=== PATIENT | male | born 1940 | race Asian ===

== ENCOUNTER → 2023-08-31 06:20 | Day surgery (SDC) | payer OTHER, SELFPAY ==
[2023-08-31 08:33] LABS: Glucose - Point of Care 206 mg/dl (70-99)
== END ==
LOC: GI 06:20
PROVIDERS: ATTENDING PHYSICIAN Specialist
DX: K31.89 Other diseases of stomach and duodenum (principal); K22.70 Barrett's esophagus without dysplasia; K31.A11 Gastric intestinal metaplasia without dysplasia, involving the antrum; K31.A12 Gastric intestinal metaplasia without dysplasia, involving the body (corpus); K31.A21 Gastric intestinal metaplasia with low grade dysplasia; K31.A15 Gastric intestinal metaplasia without dysplasia, involving multiple sites; K29.40 Chronic atrophic gastritis without bleeding; K29.50 Unspecified chronic gastritis without bleeding
CPT/HCPCS: 43239; 88305; 82962; 88341; 88342

== ENCOUNTER → 2023-10-01 07:19 | Outpatient (REF) | payer OTHER, SELFPAY | LOC: RAD 07:19 | PROVIDERS: ATTENDING PHYSICIAN Specialist; FAMILY PHYSICIAN Internal Medicine | DX: K31.A29 Gastric intestinal metaplasia with dysplasia, unspecified (principal) | CPT/HCPCS: 74177; Q9967 ==

== ENCOUNTER → 2023-10-23 13:59 | Outpatient (REF) | payer OTHER, SELFPAY | LOC: RAD 13:59 | PROVIDERS: ATTENDING PHYSICIAN Urology; FAMILY PHYSICIAN Internal Medicine | DX: N30.00 Acute cystitis without hematuria (principal); N12 Tubulo-interstitial nephritis, not specified as acute or chronic | CPT/HCPCS: 74178; Q9967 ==

== ENCOUNTER 2023-11-07 06:17 | Day surgery (SDC) | payer OTHER, SELFPAY ==
[2023-11-07 07:20] VITALS: BP 120/61
[2023-11-07 07:21] LABS: Glucose - Point of Care 174 mg/dl (70-99)
[2023-11-07 09:42] VITALS: BP 114/63
[2023-11-07 09:45] VITALS: BP 108/56
[2023-11-07 09:51] LABS: Glucose - Point of Care 150 mg/dl (70-99)
[2023-11-07 10:00] VITALS: BP 115/58
[2023-11-07 10:15] VITALS: BP 128/85
== END 2023-11-07 10:40 | disposition home or self-care (01) ==
LOC: SDS 06:17
PROVIDERS: ATTENDING PHYSICIAN Internal Medicine Gastroenterology
DX: D13.1 Benign neoplasm of stomach (principal); K31.A0 Gastric intestinal metaplasia, unspecified; K31.89 Other diseases of stomach and duodenum; K86.2 Cyst of pancreas
CPT/HCPCS: 43270; 43237; 43254; 88305; 82962

== ENCOUNTER 2024-03-13 19:36 | Inpatient (IN) | payer OTHER, SELFPAY ==
[2024-03-13 13:47] VITALS: BP 147/64
--- NOTE | 2024-03-13 14:55 | ED.GENMED ---
History of Present Illness
<Lise Ugalde PA-C - Last Filed: 03/13/24 19:43>
General
Chief Complaint: Abdominal Pain
Source: patient
Exam Limitations: none
Time Seen by Provider: 03/13/24 14:55
Nursing documentation reviewed up to this point in time: agreed with
History of Present Illness
History of Present Illness:
This is a 83 y/o male with a past medical history of coronary artery disease, small bowel obstruction, Santiago's esophagus, GI bleed presenting emergency department today with concerns of sudden onset of diffuse abdominal pain. Daughter present in
room translating for patient. Daughter lives with patient reports that he started to complain of diffuse abdominal pain when he woke up this morning. Patient compares it to when he has had a small bowel obstruction in the past. Daughter reports
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 Daughter reports that he has issues with recurrent issues with abdominal pain. Patient denies chest pain, back pain, flank pain, shortness of breath, hematuria, dysuria, melena,
diarrhea, constipation.
Past History
<Lise Ugalde PA-C - Last Filed: 03/13/24 19:43>
Past History
ED Past Medical History: CAD, HTN, NIDDM and SC
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
Social History
Tobacco: Non-smoker
Alcohol: None
Drug: None
Personal:
Living: with family
Review of Systems
<DILLON Bo Last Filed: 03/13/24 19:43>
Review of Systems
All Other Systems: ROS reviewed and negative except as documented in HPI and ROS
Phy Exam
<DILLON Bo Last Filed: 03/13/24 19:43>
Physical Exam
Physical Exam:
General: Patient is well appearing and in no acute distress; non-toxic
Skin: Warm and dry, no rashes or lesions
Head: Normocephalic, atraumatic
Eyes: Sclera non-icteric. EOMs intact. PERRLA.
Cardiac: Regular rate and rhythm, no murmurs
Peripheral Vascular: No lower extremity swelling or edema
Pulm: Normal respiratory effort, no wheezes, rales, or rhonchi
Abdomen: Abdomen distended, diffusely tender to palpation. Normoactive bowel sounds.
Neuro: CN II-XII intact, no focal neurologic deficits.
Psychiatric: Appropriate mood and affect.
Course
Trevorlt;Lise Ugalde PA-C - Last Filed: 03/13/24 19:43>
Orders/Labs/Results
Orders:
Orders
03/13/24 15:10
Electrocardiogram (*1) Urgent
Reason for Study: Abdominal Pain
03/13/24 15:11
EKG- Treatment ONCE
03/13/24 15:16
Morphine Sulfate 2 mg IV NOW STA
Ondansetron Injectable [Zofran] 4 mg IV NOW STA
03/13/24 15:20
CT Abd/pelvis W Iv Cont Urgent
Comment:
Reason For Exam: diffuse abdominal pain
03/13/24 15:45
Complete Blood Count/With Diff Urgent
Comprehensive Metabolic Panel Urgent
Lipase Urgent
03/13/24 16:20
0.9% Sodium Chloride 500 ml [Nss] 500 ml IV BOLUS
03/13/24 18:18
0.9% Sodium Chloride 500 ml [Nss] 500 ml IV BOLUS
03/13/24 18:21
NG Tube [GI tube insertion- Treatment] ONCE
03/13/24 18:35
Admit/Transfer Patient As Directed
Co-Sign Provider:
Level of Care: Inpatient admission
Assign to:: Medical/Surgical
Physician / Group: chan
Diagnosis: small bowel obstruction
Reason for Hospitalization: small bowel obstruction
Expected length of stay greater than two midnights?: Yes
ELOS- Estimated Length of Stay in days: 2
I certify the patient meets the requirements for IP care: Yes
03/13/24 18:36
Code Status As Directed
Resuscitation Status: Full Code
PRN Pain Medication Management As Directed
May give lesser potent ordered pain med per pt: Yes
preference::
Protocol:: Medication orders for pain may be administered in a
manner that supports deferring to patient preference
when the pt is:
- Requesting an ordered lesser potent pain medication.
Least to most potent pain medications are defined
as: acetaminophen < NSAID < tramadol < opioids
(morphine, oxycodone, hydromorphone).
- Requesting a lesser dose of the same medication IF
ORDERED.
- Requesting a less intrusive route of administration
if both routes are prescribed by the provider (PO <
IV).
03/13/24 19:34
Morphine Sulfate 2 mg IV Q4HPRN PRN
03/14/24 Breakfast
NPO
Allow oral meds: No
Allow clear liquids: No
NPO with Ice Chips: No
Abnormal Lab Results
03/13/24
15:45
RBC 3.83 L 10^6/uL
(4.70-6.10)
Hgb 12.2 L g/dL
(13.0-18.0)
Hct 35.7 L %
(39.0-52.0)
MCH 31.9 H pg
(27.0-31.0)
Abs Immat Gran (auto) 0.1 H 10^3/uL
(0-0.05)
Absolute Neuts (auto) 8.5 H 10^3/uL
(1.4-6.5)
Absolute Lymphs (auto) 1.1 L 10^3/uL
(1.2-3.4)
Immature Gran % 0.8 H %
(0-0.5)
Neutrophils % 82.8 H %
(42.2-75.2)
Lymphocytes % 10.3 L %
(20.5-51.1)
BUN 27 H mg/dl
(9-20)
Glucose 281 H mg/dl
(70-99)
03/13/24 15:45
03/13/24 15:45
Vital Signs
Initial and Last Documented VS:
Initial Vital Signs
Temp Pulse Resp BP Pulse Ox
97.4 F 57 26 147/64 100
03/13/24 13:47 03/13/24 13:47 03/13/24 13:47 03/13/24 13:47 03/13/24 13:47
Last Documented Vital Signs
Temp Pulse Resp BP Pulse Ox
98.8 F 58 26 136/64 97
03/13/24 19:32 03/13/24 19:32 03/13/24 13:47 03/13/24 19:32 03/13/24 19:32
<Nino Kirkland, - Last Filed: 03/13/24 19:52>
Orders/Labs/Results
Orders:
Orders
03/13/24 15:10
Electrocardiogram (*1) Urgent
Reason for Study: Abdominal Pain
03/13/24 15:11
EKG- Treatment ONCE
03/13/24 15:16
Morphine Sulfate 2 mg IV NOW STA
Ondansetron Injectable [Zofran] 4 mg IV NOW STA
03/13/24 15:20
CT Abd/pelvis W Iv Cont Urgent
Comment:
Reason For Exam: diffuse abdominal pain
03/13/24 15:45
Complete Blood Count/With Diff Urgent
Comprehensive Metabolic Panel Urgent
Lipase Urgent
03/13/24 16:20
0.9% Sodium Chloride 500 ml [Nss] 500 ml IV BOLUS
03/13/24 18:18
0.9% Sodium Chloride 500 ml [Nss] 500 ml IV BOLUS
03/13/24 18:21
NG Tube [GI tube insertion- Treatment] ONCE
03/13/24 18:35
Admit/Transfer Patient As Directed
Co-Sign Provider:
Level of Care: Inpatient admission
Assign to:: Medical/Surgical
Physician / Group: chan
Diagnosis: small bowel obstruction
Reason for Hospitalization: small bowel obstruction
Expected length of stay greater than two midnights?: Yes
ELOS- Estimated Length of Stay in days: 2
I certify the patient meets the requirements for IP care: Yes
03/13/24 18:36
Code Status As Directed
Resuscitation Status: Full Code
PRN Pain Medication Management As Directed
May give lesser potent ordered pain med per pt: Yes
preference::
Protocol:: Medication orders for pain may be administered in a
manner that supports deferring to patient preference
when the pt is:
- Requesting an ordered lesser potent pain medication.
Least to most potent pain medications are defined
as: acetaminophen < NSAID < tramadol < opioids
(morphine, oxycodone, hydromorphone).
- Requesting a lesser dose of the same medication IF
ORDERED.
- Requesting a less intrusive route of administration
if both routes are prescribed by the provider (PO <
IV).
03/13/24 19:34
Morphine Sulfate 2 mg IV Q4HPRN PRN
03/14/24 Breakfast
NPO
Allow oral meds: No
Allow clear liquids: No
NPO with Ice Chips: No
Abnormal Lab Results
03/13/24
15:45
RBC 3.83 L 10^6/uL
(4.70-6.10)
Hgb 12.2 L g/dL
(13.0-18.0)
Hct 35.7 L %
(39.0-52.0)
MCH 31.9 H pg
(27.0-31.0)
Abs Immat Gran (auto) 0.1 H 10^3/uL
(0-0.05)
Absolute Neuts (auto) 8.5 H 10^3/uL
(1.4-6.5)
Absolute Lymphs (auto) 1.1 L 10^3/uL
(1.2-3.4)
Immature Gran % 0.8 H %
(0-0.5)
Neutrophils % 82.8 H %
(42.2-75.2)
Lymphocytes % 10.3 L %
(20.5-51.1)
BUN 27 H mg/dl
(9-20)
Glucose 281 H mg/dl
(70-99)
03/13/24 15:45
03/13/24 15:45
Vital Signs
Initial and Last Documented VS:
Initial Vital Signs
Temp Pulse Resp BP Pulse Ox
97.4 F 57 26 147/64 100
03/13/24 13:47 03/13/24 13:47 03/13/24 13:47 03/13/24 13:47 03/13/24 13:47
Last Documented Vital Signs
Temp Pulse Resp BP Pulse Ox
98.8 F 58 26 136/64 97
03/13/24 19:32 03/13/24 19:32 03/13/24 13:47 03/13/24 19:32 03/13/24 19:32
<Lise Ugalde PA-C - Last Filed: 03/13/24 19:43>
MDM/Problems Addressed
Differential Diagnosis Includes:
ddx include small bowel obstruction, pancreatitis, duodenitis, gastritis, mesenteric ischemia, cholecystitis
MDM/Problems Addressed:
Abdominal pain:
83 y/o male hx of SBO (2015 managed non-surgically), CAD, HTN, diabetes, GERD, santiago's esophagus, coming in with diffuse abdominal pain starting acutely this morning. No active vomiting, diarrhea, constipation. Afebrile, no leukocytosis. On exam,
his abdomen is diffusely tender. He was found to have a small bowel obstruction with thickening of loops of small bowel as well as a small amount of fluid within the mesentery. No blood thinners, last meal 1000. General surgery made aware.
Considering stomach contents visualized on CT and per gen surg recommendations, will place NG tube. Patient made NPO. Will refer for admission.
Chronic conditions affecting care:
CAD, HTN, HLP, diabetes, hx of SBO, GERD, Santiago's esophagus
Acute Exacerbation and/or Progression of Chronic Illness:
CAD, HTN, HLP, diabetes, hx of SBO, GERD, Santiago's esophagus
<Lise Ugalde PA-C - Last Filed: 03/13/24 19:43>
*Pulse Oximetry
Patient hypoxic: no
*Critical Care Note
Total Time (30-74mins, 75-104mins- exclusive of procedures): Not Applicable
Data Reviewed
Review of Other/Old Records Reveals: Records (Reviewed ER physician documentation from 08/02/2023) and Operative Reports (Reviewed endoscopy report from 11/07/2023, patient was found to have a normal esophagus with a single gastric polyp which was
resected and retrieved)
Source: patient and records
Prescriptions/Medications Considered But Not Given:
n/a
Further Testing Considered But Not Given:
n/a
<Lise Ugalde PA-C - Last Filed: 03/13/24 19:43>
Patient Management
Escalation/DeEscalation of care consider admission/obs:
Patient referred for admission. Case reviewed with my attending.
ED Attending Note
<Lise Ugalde PA-C - Last Filed: 03/13/24 19:43>
-
Portions of this chart may have been created with voice recognition software.� Occasional wrong word or��sound alike� substitutions may have occurred due to the inherent limitations of voice recognition software.
<Nino Kirkland DO - Last Filed: 03/13/24 19:52>
ED Attending Note
Patient seen and examined by attending physician: Yes
I performed the substantive portion of visit, reviewed & personally made and approve the management plan that is documented in note by myself or ALLEGRA.: Yes
I performed a history and physical exam of patient and discussed management with resident, I reviewed resident's note and agree with documented findings and plan of care.: Yes
ED Attending Note:
I evaluated the patient at bedside at 3:15 PM. The patient appears somewhat uncomfortable. He has moderate tenderness on examination. Will give narcotic analgesia, give IV fluids, and also check CT imaging for further evaluation. He did vomit
earlier today in the waiting room. He has had a surgery involving the abdomen after a soccer injury in [place] as a child.
Discharge Plan
Departure
Patient Disposition: Admit
Date of Disposition: 03/13/24
Time of Disposition: 18:25
Admit to: Med/Surg
Presentation/result/management discussed w/ accepting MD/DO: Hospitalist
Patient with high blood pressure during this ER visit?: Yes
Condition: Fair
Discharge Problem:
SBO (small bowel obstruction)
Interventions
Interventions:
*General Assessment Last Done: 03/13/24 13:46
*Neglect/Abuse Screening Last Done: 03/13/24 13:46
*ED COVID-19 Vaccine History Last Done: 03/13/24 13:46
GI-Tkawwm-Lkglkyurbx Assessment Last Done: 03/13/24 19:44
[2024-03-13] MEDS: ZOFRAN 4 MG IV (15:42)
[2024-03-13] MEDS: MORPHINE SULFATE 2 MG IV ×2 (15:42→20:09)
[2024-03-13 15:47] VITALS: BP 124/57
[2024-03-13 15:48] VITALS: BMI 19.9
[2024-03-13 15:57] LABS: % Basophils 0.2 % (0-2); % Eosinophils 0.4 % (0-6); % Immature Granulocytes 0.8 % (0-0.5); % Lymphocytes 10.3 % (20.5-51.1); % Monocytes 5.5 % (1.7-9.3); % Neutrophils 82.8 % (42.2-75.2); Absolute Immature Granulocytes 0.1 10^3/uL (0-0.05); Absolute Lymphocytes 1.1 10^3/uL (1.2-3.4); Absolute Monocytes 0.6 10^3/uL (0.1-0.6); Absolute Neutrophils 8.5 10^3/uL (1.4-6.5); Hematocrit 35.7 % (39.0-52.0); Hemoglobin 12.2 g/dL (13.0-18.0); Mean Corp Hgb Conc. 34.2 g/dL (33.0-37.0); Mean Corpuscular Hgb 31.9 pg (27.0-31.0); Mean Corpuscular Volume 93.2 fL (80.0-94.0); Mean Platelet Volume 9.9 fL (7.4-10.4); Nucleated Red Blood Cells % 0 % (-); Platelet Count 194 10^3/uL (130-400); Red Blood Cell Count 3.83 10^6/uL (4.70-6.10); White Blood Cell Count 10.3 10^3/uL (4.8-10.8)
[2024-03-13 16:10] LABS: ALT (SGPT) 16 U/L (0-50); AST (SGOT) 22 U/L (17-59); Albumin 4.5 g/dl (3.5-5.0); Alkaline Phosphatase 122 U/L (38-126); Blood Urea Nitrogen 27 mg/dl (9-20); Calcium 9.8 mg/dl (8.4-10.2); Carbon Dioxide 24 mmol/L (22-30); Chloride 101 mmol/L (98-107); Estimated Creatinine Clearance 46 ml/min; Glucose 281 mg/dl (70-99); Potassium 4.2 mmol/L (3.5-5.1); Sodium 136 mmol/L (135-145); Total Bilirubin 0.7 mg/dl (0.2-1.3); Total Protein 7.1 g/dl (6.3-8.2); eGFR > 60.00
[2024-03-13 16:31] LABS: Lipase 39 U/L (23-300)
[2024-03-13] MEDS: NSS 500 IV ×2 (17:23→20:21)
--- NOTE | 2024-03-13 18:40 | HPS.HSE ---
Family Physician
-
Family Physician: Reagan Peter
Chief Complaint
-
abdominal pain
History of Present Illness
83-year-old French speaking male past medical history of coronary artery disease status post stent, hypertension, small bowel obstruction, Don's esophagus, gastric ulcer, diabetes, splenectomy presenting with sudden onset of diffuse abdominal
pain since waking up this morning. Pain feels similar to prior small bowel obstruction in the past. He had vomiting and chills. He had a normal bowel movement this morning. No chest pain or shortness of breath.
Medical History
Past Medical History
Past Medical History: Reports Other ( coronary artery disease status post stent, hypertension, small bowel obstruction, Don's esophagus, gastric ulcer, diabetes, splenectomy )
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
Social History
Tobacco: Former Smoker
Alcohol: None
Drug: None
Family History
Family History: Not pertinent
Allergies / Home Medications
Allergies reflects when Allergies were last updated in [employer].
Home Medications with original date entered in [employer]
Allergy/Medication List:
Allergies
Allergy/AdvReac Type Severity Reaction Status Date / Time
No Known Allergies Allergy Verified 11/07/23 07:28
Home Medications
ascorbic acid (vitamin C) 1,000 mg tablet (Vitamin C) 1 tab PO HS 02/16/14
calcium carbonate (Calcium 600) 600 mg PO BID 02/16/14
losartan 25 mg tablet 25 mg PO HS 02/16/14
metoprolol tartrate 25 mg tablet 25 mg PO BID 02/16/14
mgfpqemz-alb-xuumc acid 0.4 mg-lycopene 300 mcg-lutein 250 mcg tablet (Centrum Silver) 1 tab PO DAILY 02/16/14
pioglitazone 30 mg tablet 45 mg PO HS 02/16/14
sitagliptin phos 50 mg-metformin ER 1,000 mg tablet,extend rel 24h mp (Janumet XR) 1 tab PO BID 02/16/14
Fish Oil 1 tab PO DAILY 03/30/15
dapagliflozin propanediol 10 mg tablet (Farxiga) 10 mg PO 11/07/23
magnesium 200 mg tablet 400 mg PO DAILY 11/07/23
uuguswalzxht-dpcquqzj-wrqaew tablet 1 tab PO DAILY 11/07/23
pantoprazole 40 mg tablet,delayed release 40 mg PO DAILY 11/07/23
Review of Systems
-
History Source: Patient
A 12 point ROS was completed and negative except as noted: Yes
Constitutional: Reports No Symptoms
EENT: Reports No Symptoms
Respiratory: Reports No Symptoms
Cardiac: Reports No Symptoms
Abdomen/GI: Reports See HPI
: Reports No Symptoms
Musculoskeletal: Reports No Symptoms
Skin: Reports No Symptoms
Neurological: Reports No Symptoms
Endocrine: Reports No Symptoms
Hematologic/Lymphatic: Reports No Symptoms
Psych: Reports No Symptoms
Physical Exam
Vital Signs
Vital Signs
Temp Pulse Resp BP Pulse Ox
97.4 F 67 26 124/57 94
03/13/24 13:47 03/13/24 15:47 03/13/24 13:47 03/13/24 15:47 03/13/24 15:47
Physical Exam
General: Well Developed, Well Nourished and No Apparent Distress
HEENT: NormoCephalic, Moist mucous membranes and Atraumatic
Respiratory: Clear
Cardiac: S1/S2 and Regular Rhythm; No Murmur or Rub
GI: Soft, Non Distended, Normal Bowel Sounds and Tender (diffusely ); No Organomegaly
Rectal: Deferred by Provider
Musculoskeletal: No Clubbing, No Cyanosis and No Edema
Skin: No Rash
Neuro: Nonfocal/grossly intact
Laboratory Results
-
03/13/24 15:45
03/13/24 15:45
Laboratory Results
Total Bilirubin 0.7 mg/dl (0.2-1.3) 03/13/24 15:45
AST 22 U/L (17-59) 03/13/24 15:45
ALT 16 U/L (0-50) 03/13/24 15:45
Alkaline Phosphatase 122 U/L (38-126) 03/13/24 15:45
Lipase 39 U/L (23-300) 03/13/24 15:45
Data Reviewed
-
Lab Data: Labs Reviewed by me
Old Records: Reviewed
Impression/Plan
-
IMPRESSION:
PLAN:
# Small bowel obstruction/enteritis
# History of small bowel obstruction
-N.p.o. including oral medications
-IV fluids
-Morphine, Zofran
-NG tube to be placed
-General Surgery consulted
CAD status post stent
-hold metoprolol until he can take p.o.
Essential hypertension
-Hold losartan until can take p.o.
-As needed labetalol if needed
Don's esophagus
History of gastric ulcer
-Continue Protonix IV
Type 2 diabetes
-Hold Janumet, pioglitazone, dapagliflozin
-Insulin sliding scale
History of trauma status post splenectomy
Former smoker
Full code
DVT prophylaxis�heparin
N.p.o.
[2024-03-13 19:32] VITALS: BP 136/64
[2024-03-13] MEDS: LIDOCAINE URO-JET 2% 1 SYRINGE TOPICAL (20:30)
[2024-03-13 21:43] VITALS: BMI 20.7
[2024-03-13 21:44] VITALS: BP 138/67
[2024-03-13] MEDS: NSS 1000 IV (22:02)
[2024-03-13] MEDS: HEPARIN 5000 UNITS SC (22:03)
[2024-03-13 23:42] LABS: Glucose - Point of Care 134 mg/dl (70-99)
[2024-03-13] MEDS: NOVOLOG FLEXPEN-LOW RESISTANCE SC (23:44)
[2024-03-14] MEDS: MORPHINE SULFATE 2 MG IV ×3 (00:42→10:57)
--- NOTE | 2024-03-14 05:39 | PTCARENOTE ---
Pt admitted to the floor at 2145 and pivoted from stretcher to bed x1. Daughter up to floor w/ patient and translating.
Kamila Madsen present in R nare, hooked up to low int suction. Pt c/o 8/10 pain throughout abd. PRN Morphine given (see MAR). NG tube irrigated Q4H w/ 30 mls of tap water. Pt denies nausea. 60mls instilled into NG tube and 40mls of yellow bile out. Pt
given urinal and instructed to call for BSC. Call cano within reach and plan of care ongoing.
[2024-03-14 05:49] LABS: Glucose - Point of Care 151 mg/dl (70-99)
[2024-03-14] MEDS: NOVOLOG FLEXPEN-LOW RESISTANCE 1 UNITS SC (06:23)
[2024-03-14 07:34] VITALS: BP 114/56
--- NOTE | 2024-03-14 07:37 | CON.GS ---
Addendum entered and electronically signed by Kai Corona MD 03/14/24 11:34:
Patient seen and examined.
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 He does have multiple prior bowel obstructions all of
which have been able to be managed medically. His most recent episode was years ago. He presents with 24 hours of abdominal pain after having a meal consisting of oatmeal. Associated nausea and vomiting. He reports passing some flatus this
morning. No bowel movement. Currently he denies any nausea, pain has improved but not resolved.
Gen: NAD
Abd: soft, tender to palpation diffusely, mild/moderate distension, non-peritoneal (no rebound or guarding)
Labs and CT scan imaging were reviewed.
Patient is an 83 yo M p/w adhesive SBO
Patient and family well versed on the natural history and pathophysiology of SBO's. No clinical or radiographic evidence of bowel ischemia (no pneumatosis or free air). Some signs of slow clinical improvement with passage of flatus. Normal WBC.
Hemodynamically stable. Recommend trial of medical management with bowel rest and IV fluids. All questions answered.
-- NPO, IVF, NGT decompression
-- Minimize narcotics, correct lytes
-- X-ray abd to confirm NGT placement and assess distension
Original Note:
Consultation
-
Performing Provider: Sky Marshall MD ; Kai Croona MD
Reason for Consultation: Abdominal pain
Medical History
-
Chief Complaint: Abdominal Pain
History of Present Illness:
Patient is a Latvian only speaker, History obtained from chart review in addition to patient interview( via phone american sign language interpreter). General surgery consulted for concerns of SBO.
83-year-old male with known history of prior small bowel obstructions, Don's esophagus, gastric ulcer, coronary artery disease status post stent placement, hypertension, diabetes, splenectomy presented initially with sudden onset of diffuse
abdominal pain after he had oatmeal yesterday. Patient reports pain feels similar to prior small bowel obstruction episodes. He also had episode of some nausea and chills, denies vomiting. His last bowel movement was on 03/13/2024( before the
onset of abdominal pain). Denies any chest pain or shortness of breath.
CT abdomen and pelvis with IV contrast was performed and finding compatible with small bowel obstruction
Past Medical History
Past Medical History: CAD (Status post stent placement), HTN and Other (Small bowel obstruction, Don's esophagus, gastric ulcer, diabetes)
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
Social History
Tobacco: Former Smoker
Alcohol: None
Drug: None
Family History
Family History: Reviewed & Not Pertinent
Allergies / Home Medications
Allergy/AdvReac Type Severity Reaction Status Date / Time
No Known Allergies Allergy Verified 11/07/23 07:28
�Medication �Instructions �Recorded �Confirmed �Type
ascorbic acid (vitamin C) 1,000 mg 1 tab PO HS 02/16/14 03/13/24 History
tablet (Vitamin C)
calcium carbonate (Calcium 600) 600 mg PO BID 02/16/14 03/13/24 History
losartan 25 mg tablet 25 mg PO HS 02/16/14 03/13/24 History
metoprolol tartrate 25 mg tablet 25 mg PO BID 02/16/14 03/13/24 History
dapagliflozin propanediol 10 mg 10 mg PO DAILY 11/07/23 03/13/24 History
tablet (Farxiga)
magnesium 200 mg tablet 400 mg PO DAILY 11/07/23 03/13/24 History
gdgynoxkhxfo-njkffojr-nvyqea tablet 1 tab PO DAILY 11/07/23 03/13/24 History
pantoprazole 40 mg tablet,delayed 40 mg PO DAILY 11/07/23 03/13/24 History
release
omega 7-dcs-kzd-fish oil 1,000 mg 1 cap PO DAILY 03/13/24 03/13/24 History
(120 mg-180 mg) capsule (Fish Oil)
pioglitazone 45 mg tablet 45 mg PO HS 03/13/24 03/13/24 History
sitagliptin phosphate 50 1 tab PO BID 03/13/24 03/13/24 History
mg-metformin 1,000 mg tablet
(Janumet)
tamsulosin 0.4 mg capsule 0.4 mg PO DAILY 03/13/24 History
Review of Systems
-
History Source: Patient
A 10 point review of systems was completed, and was negative except as per HPI.
Physical Exam
Vital Signs
Temp Pulse Resp BP Pulse Ox
98.9 F 65 16 114/56 97
03/14/24 07:34 03/14/24 07:34 03/14/24 07:34 03/14/24 07:34 03/14/24 07:34
03/13/24 03/14/24 03/15/24
06:59 06:59 06:59
Actual Weight 59.965 kg
Body Mass Index (BMI) 20.7
Lab Results
WBC 10.3 10^3/uL (4.8-10.8) 03/13/24 15:45
Hgb 12.2 g/dL (13.0-18.0) L 03/13/24 15:45
Hct 35.7 % (39.0-52.0) L 03/13/24 15:45
Plt Count 194 10^3/uL (130-400) 03/13/24 15:45
Abs Immat Gran (auto) 0.1 10^3/uL (0-0.05) H 03/13/24 15:45
Neutrophils % 82.8 % (42.2-75.2) H 03/13/24 15:45
Physical Exam
General: Other (NG in place)
GI: Soft, Tender (Diffuse) and Distended (Mild)
Skin: Warm
Neuro: Awake, Alert and Oriented
Psych: Calm
Data Reviewed
-
CT Scan: Report Reviewed by me, Discussed with Physician and Discussed with Patient
Labs: Labs Reviewed by me
Total Time Spent with Patient (in minutes): 20
Assessment / Plan
-
83-year-old Latvian speaking male presented with sudden onset abdominal pain-concern for SBO.
-Continue with NG and n.p.o.
-Continue IV fluid
-Pain control as needed
-now passing flatus and nausea resolved
-No surgeical recommendation at this time
General Surgery will continue to follow
GI prophylaxis: IV Protonix
[2024-03-14 07:50] LABS: % Basophils 0.2 % (0-2); % Eosinophils 0.2 % (0-6); % Immature Granulocytes 0.3 % (0-0.5); % Lymphocytes 12.6 % (20.5-51.1); % Monocytes 6.2 % (1.7-9.3); % Neutrophils 80.5 % (42.2-75.2); Absolute Lymphocytes 1.1 10^3/uL (1.2-3.4); Absolute Monocytes 0.5 10^3/uL (0.1-0.6); Hematocrit 34.1 % (39.0-52.0); Hemoglobin 11.4 g/dL (13.0-18.0); Mean Corp Hgb Conc. 33.4 g/dL (33.0-37.0); Mean Corpuscular Hgb 30.8 pg (27.0-31.0); Mean Corpuscular Volume 92.2 fL (80.0-94.0); Mean Platelet Volume 10.2 fL (7.4-10.4); Nucleated Red Blood Cells % 0 % (-); Platelet Count 186 10^3/uL (130-400); Red Cell Dist. Width 14.4 % (11.5-14.5); White Blood Cell Count 8.7 10^3/uL (4.8-10.8)
[2024-03-14 08:06] LABS: ALT (SGPT) 13 U/L (0-50); AST (SGOT) 20 U/L (17-59); Albumin 3.6 g/dl (3.5-5.0); Alkaline Phosphatase 81 U/L (38-126); Blood Urea Nitrogen 20 mg/dl (9-20); Carbon Dioxide 25 mmol/L (22-30); Chloride 106 mmol/L (98-107); Estimated Creatinine Clearance 54 ml/min; Glucose 135 mg/dl (70-99); Potassium 4.1 mmol/L (3.5-5.1); Sodium 139 mmol/L (135-145); Total Bilirubin 0.6 mg/dl (0.2-1.3); eGFR > 60.00
[2024-03-14] MEDS: PROTONIX IV 40 MG IV (09:10)
[2024-03-14] MEDS: NSS 1000 IV ×2 (09:11→19:52)
[2024-03-14] MEDS: HEPARIN 5000 UNITS SC ×2 (09:11→20:38)
[2024-03-14] MEDS: NSS (PRESERVATIVE FREE) 10 ML IV (09:11)
[2024-03-14 10:12] LABS: Glycohemoglobin (HgbA1c) 8.3 % (4.0-5.6)
--- NOTE | 2024-03-14 11:15 | W.PN.HOSP.TC ---
Today's Communication/Plan
-
NPO
IVF
GS recs
Assessment / Plan
Assessment / Plan
# Small bowel obstruction/enteritis
# History of small bowel obstruction
-N.p.o.
-IV fluids
-Morphine, Zofran
-NG tube to be placed-remains with secretions
-AXR with Persistent small bowel obstruction without substantial change since yesterday.
-General Surgery consulted
CAD status post stent
-hold metoprolol until he can take p.o.
Essential hypertension
-Hold losartan until can take p.o.
-As needed labetalol if needed
Don's esophagus
History of gastric ulcer
-Continue Protonix IV
Type 2 diabetes
-Hold Janumet, pioglitazone, dapagliflozin
-Insulin sliding scale
-a1c at 8.3
History of trauma status post splenectomy
Former smoker
Full code
DVT prophylaxis�heparin
Anticipated Discharge: > 48 hours
Subjective/Interval History
-
Date of Service: March 14, 2024
states of intermittent abd pain
family member at bedside graciously assisted with translational
Objective Data
-
Labs:
Laboratory Results
03/14/24 03/14/24
07:00 07:01
WBC 8.7
Hgb 11.4 L
Hct 34.1 L
Plt Count 186
Sodium 139
Potassium 4.1
Chloride 106
Carbon Dioxide 25
BUN 20
Creatinine 0.9
Glucose 135 H
Calcium 9.0
Total Bilirubin 0.6
AST 20
ALT 13
Alkaline Phosphatase 81
Vital Signs:
Vital Signs
Temp Pulse Resp BP Pulse Ox
98.9 F 65 16 114/56 97
03/14/24 07:34 03/14/24 07:34 03/14/24 07:34 03/14/24 07:34 03/14/24 07:34
I&O
03/13/24 03/14/24 03/15/24
06:59 06:59 06:59
Intake Total 771 / 771
Output Total 990 / 990
Balance -219 / -219
Physical Exam
-
General: Well Developed and No Apparent Distress
HEENT: Normocephalic, Atraumatic and Moist Mucous Membranes
Respiratory: Clear to Auscultation
Cardiac: Regular Rhythm and S1/S2; Negative Murmur, Rub or Gallop
GI: Tender, Distended and Other (NGT ); Negative Organomegaly
Rectal: Deferred by Provider
Musculoskeletal: No Clubbing, No Cyanosis and No Edema
Skin: Negative Rash
Neuro: Awake and Nonfocal/Grossly Intact
Psych: Calm
--- NOTE | 2024-03-14 12:16 | CM ---
Reviewed chart, met with patient's to obtain information for assessment. Patient stated that she is not fluent in Yoruba but was able to answer questions for assessment. Patient lives with his and daughter in a two story home with two
steps to enter. Patient's described patient as independent with all of his ADLs, personal care, dressing and bathing. His does all the cooking, cleaning, medical office rep and laundry.
Patient denied any DME in his home.
He has not had VN services.
He has not been to a SNF.
Patient has a prescription plan and uses, [facility] in [place] for all of his medications.
Patient's PCP is, Dr. Reagan Peter.
Patient relayed through his that he does not think that he will have any needs at discharge.
Plan: Case management will continue to follow and assist with discharge planning. Tentative Home.
[2024-03-14 12:57] LABS: Glucose - Point of Care 113 mg/dl (70-99)
[2024-03-14] MEDS: NOVOLOG FLEXPEN-LOW RESISTANCE SC ×2 (13:03→18:15)
[2024-03-14 15:17] VITALS: BP 114/54
[2024-03-14 18:15] LABS: Glucose - Point of Care 94 mg/dl (70-99)
[2024-03-14 19:25] VITALS: BP 131/59
[2024-03-14 23:26] VITALS: BP 133/62
[2024-03-15 00:22] LABS: Glucose - Point of Care 82 mg/dl (70-99)
[2024-03-15] MEDS: NOVOLOG FLEXPEN-LOW RESISTANCE SC ×4 (01:03→18:10)
[2024-03-15 03:18] VITALS: BP 134/63
[2024-03-15] MEDS: NSS 1000 IV (05:13)
[2024-03-15 06:08] LABS: Glucose - Point of Care 113 mg/dl (70-99)
[2024-03-15 07:31] VITALS: BP 143/61
[2024-03-15] MEDS: NSS (PRESERVATIVE FREE) 10 ML IV (08:07)
[2024-03-15] MEDS: HEPARIN 5000 UNITS SC ×2 (08:07→20:51)
[2024-03-15] MEDS: PROTONIX IV 40 MG IV (08:07)
[2024-03-15 09:24] LABS: Hematocrit 34.9 % (39.0-52.0); Hemoglobin 11.4 g/dL (13.0-18.0); Mean Corp Hgb Conc. 32.7 g/dL (33.0-37.0); Mean Corpuscular Hgb 31.1 pg (27.0-31.0); Mean Corpuscular Volume 95.4 fL (80.0-94.0); Mean Platelet Volume 9.8 fL (7.4-10.4); Platelet Count 188 10^3/uL (130-400); Red Blood Cell Count 3.66 10^6/uL (4.70-6.10); Red Cell Dist. Width 14.5 % (11.5-14.5)
[2024-03-15 10:25] LABS: Blood Urea Nitrogen 19 mg/dl (9-20); Calcium 8.9 mg/dl (8.4-10.2); Carbon Dioxide 14 mmol/L (22-30); Chloride 110 mmol/L (98-107); Estimated Creatinine Clearance 44 ml/min; Glucose 86 mg/dl (70-99); Sodium 142 mmol/L (135-145); eGFR > 60.00
--- NOTE | 2024-03-15 10:57 | W.PN.HOSP.TC ---
Today's Communication/Plan
-
NG tube and diet per surgery
DC Normal Saline start patient on bicarbonate infusion
Remains n.p.o.
Assessment / Plan
Assessment / Plan
# Small bowel obstruction/enteritis
# History of small bowel obstruction
-N.p.o.
-IV fluids
-Morphine, Zofran
-NG tube to be placed-remains with secretions
-AXR with Persistent small bowel obstruction without substantial change since yesterday.
-General Surgery consulted
# Anion gap metabolic acidosis likely secondary to NG tube/NS IVF
-DC normal saline and start patient on bicarbonate infusion.
CAD status post stent
-hold metoprolol until he can take p.o.
Essential hypertension
-Hold losartan until can take p.o.
-As needed labetalol if needed
Don's esophagus
History of gastric ulcer
-Continue Protonix IV
Type 2 diabetes
-Hold Janumet, pioglitazone, dapagliflozin
-Insulin sliding scale
-a1c at 8.3
History of trauma status post splenectomy
Former smoker
Full code
DVT prophylaxis�heparin
Discussed with patient daughter and spouse at bedside in detail.
Anticipated Discharge: > 48 hours
Subjective/Interval History
-
Date of Service: March 15, 2024
Abdominal pain
Passing flatulence
No bowel movements
Objective Data
-
Labs:
Laboratory Results
03/15/24
08:45
WBC 7.0
Hgb 11.4 L
Hct 34.9 L
Plt Count 188
Sodium 142
Potassium 4.0
Chloride 110 H
Carbon Dioxide 14 L*
BUN 19
Creatinine 1.1
Glucose 86
Calcium 8.9
Vital Signs:
Vital Signs
Temp Pulse Resp BP Pulse Ox
98.7 F 70 16 143/61 96
03/15/24 07:31 03/15/24 07:31 03/15/24 07:31 03/15/24 07:31 03/15/24 07:31
I&O
03/14/24 03/15/24 03/16/24
06:59 06:59 06:59
Intake Total 771 / 771 60 / 60
Output Total 990 / 990 600 / 600
Balance -219 / -219 -540 / -540
Physical Exam
-
General: Well Developed and No Apparent Distress
HEENT: Normocephalic, Atraumatic and Moist Mucous Membranes
Respiratory: Clear to Auscultation
Cardiac: Regular Rhythm and S1/S2; Negative Murmur, Rub or Gallop
GI: Nontender, Distended and Other (NGT ); Negative Organomegaly
Rectal: Deferred by Provider
Musculoskeletal: No Clubbing, No Cyanosis and No Edema
Skin: Negative Rash
Neuro: Awake and Nonfocal/Grossly Intact
Psych: Calm
[2024-03-15 11:20] VITALS: BP 139/62
[2024-03-15] MEDS: SODIUM BICARBONATE 1150 MEQ IV (11:53)
[2024-03-15 11:57] LABS: Glucose - Point of Care 88 mg/dl (70-99)
[2024-03-15 15:14] VITALS: BP 148/61
--- NOTE | 2024-03-15 16:53 | W.PN.GS2 ---
Today's Communication / Plan
-
NGT clamping trial
No plans for surgery
Assessment / Plan
-
Partial sbo most likely from adhesions
He is passing some flatus and denies pain.
NGT with
X-ray today with significantly decreased small bowel distention with a single loop of small bowel projecting over the left upper quadrant.
Subjective Data
-
Date of Service: March 15, 2024
His was present at the bedside. He denies any abdominal pain and is passing some flatus. He is hungry.
Objective Data
-
Intake and Output
03/14/24 03/15/24 03/16/24
06:59 06:59 06:59
Intake Total 771 / 771 60 / 60
Output Total 990 / 990 600 / 600
Balance -219 / -219 -540 / -540
Intake:
IV fluids (Total) 711 / 711
Amount instilled into GI Tube ( 60 / 60 60 / 60
Total)
[place] Sump 60 / 60 60 / 60
Output:
Gastrointestinal tube output ( 90 / 90 125 / 125
Total)
[place] Sump 40 / 40 125 / 125
Urine, Voided 900 / 900 475 / 475
Other:
Number of approximated MODERATE 1
amounts of urine
Vital Signs
Temp Pulse Resp BP Pulse Ox
98.2 F 70 16 148/61 98
03/15/24 15:14 03/15/24 15:14 03/15/24 15:14 03/15/24 15:14 03/15/24 15:14
Lab Results
03/15/24 08:45
03/15/24 08:45
Calcium 8.9 mg/dl (8.4-10.2) 03/15/24 08:45
Total Bilirubin 0.6 mg/dl (0.2-1.3) 03/14/24 07:00
AST 20 U/L (17-59) 03/14/24 07:00
ALT 13 U/L (0-50) 03/14/24 07:00
Alkaline Phosphatase 81 U/L (38-126) 03/14/24 07:00
Total Protein 6.0 g/dl (6.3-8.2) L 03/14/24 07:00
Albumin 3.6 g/dl (3.5-5.0) 03/14/24 07:00
Physical Exam
-
NAD
Abd: soft and nondistended/nontender
[2024-03-15 17:56] LABS: Glucose - Point of Care 95 mg/dl (70-99)
[2024-03-15 19:30] VITALS: BP 142/63
--- NOTE | 2024-03-15 21:54 | PTCARENOTE ---
Pt clamp trial for NGT started around 16:30 pm for day shift. Pt assessed for residual at 20:45pm with only 30ml present. Pt denies pain and nausea. NGT removed at 20:50pm, tube intact. Pt requesting ice chips at this time and tolerating well. Will
continue to monitor pt.
[2024-03-15 23:53] VITALS: BP 133/58
[2024-03-16 00:36] LABS: Glucose - Point of Care 92 mg/dl (70-99)
[2024-03-16] MEDS: NOVOLOG FLEXPEN-LOW RESISTANCE SC ×3 (00:38→13:00)
[2024-03-16 03:13] VITALS: BP 123/57
[2024-03-16 06:17] LABS: Glucose - Point of Care 75 mg/dl (70-99)
[2024-03-16] MEDS: SODIUM BICARBONATE 1150 MEQ IV ×2 (06:25→12:35)
[2024-03-16 07:36] VITALS: BP 137/63
[2024-03-16 07:55] LABS: Hematocrit 33.2 % (39.0-52.0); Hemoglobin 11.1 g/dL (13.0-18.0); Mean Corp Hgb Conc. 33.4 g/dL (33.0-37.0); Mean Corpuscular Hgb 31.4 pg (27.0-31.0); Mean Corpuscular Volume 93.8 fL (80.0-94.0); Mean Platelet Volume 9.6 fL (7.4-10.4); Platelet Count 182 10^3/uL (130-400); Red Blood Cell Count 3.54 10^6/uL (4.70-6.10); Red Cell Dist. Width 14.3 % (11.5-14.5); White Blood Cell Count 6.3 10^3/uL (4.8-10.8)
[2024-03-16] MEDS: HEPARIN 5000 UNITS SC ×2 (08:13→20:50)
[2024-03-16] MEDS: PROTONIX IV 40 MG IV (08:15)
[2024-03-16] MEDS: NSS (PRESERVATIVE FREE) 10 ML IV (08:15)
[2024-03-16] MEDS: FLUSH (NSS) 2 FLUSH IV (08:19)
[2024-03-16 08:34] LABS: Blood Urea Nitrogen 17 mg/dl (9-20); Calcium 9.3 mg/dl (8.4-10.2); Carbon Dioxide 15 mmol/L (22-30); Chloride 107 mmol/L (98-107); Estimated Creatinine Clearance 48 ml/min; Glucose 71 mg/dl (70-99); Potassium 4.2 mmol/L (3.5-5.1); Sodium 139 mmol/L (135-145); eGFR > 60.00
[2024-03-16 11:30] VITALS: BP 146/64
[2024-03-16 11:35] LABS: Glucose - Point of Care 77 mg/dl (70-99)
--- NOTE | 2024-03-16 11:38 | W.PN.HOSP.TC ---
Today's Communication/Plan
-
cont bicarb fluid
Diet per surgery
oob/ambulate
Assessment / Plan
Assessment / Plan
# Small bowel obstruction/enteritis
# History of small bowel obstruction
-N.p.o.
-IV fluids
-Morphine, Zofran
-NG tube to be placed on admission and s/p removal on 03/15.
-AXR with on 03/15-Significantly decreased small bowel distention with a single dilated loop of small bowel projecting over the left upper quadrant, possibly representing resolving small bowel obstruction.
-General Surgery consulted
# Anion gap metabolic acidosis likely secondary to NG tube/NS IVF
-DC normal saline and start patient on bicarbonate infusion.
-Mild improvement.
CAD status post stent
-hold metoprolol until he can take p.o.
Essential hypertension
-Hold losartan until can take p.o.
-As needed labetalol if needed
Don's esophagus
History of gastric ulcer
-Continue Protonix IV
Type 2 diabetes
-Hold Janumet, pioglitazone, dapagliflozin
-Insulin sliding scale
-a1c at 8.3. POC 77
History of trauma status post splenectomy
Former smoker
Full code
DVT prophylaxis�heparin
Discussed with patient spouse at bedside in detail.
Anticipated Discharge: > 48 hours
Subjective/Interval History
-
Date of Service: March 16, 2024
NGT removed.
denies nausea or vomiting
Objective Data
-
Labs:
Laboratory Results
03/16/24
06:59
WBC 6.3
Hgb 11.1 L
Hct 33.2 L
Plt Count 182
Sodium 139
Potassium 4.2
Chloride 107
Carbon Dioxide 15 L
BUN 17
Creatinine 1.0
Glucose 71
Calcium 9.3
Vital Signs:
Vital Signs
Temp Pulse Resp BP Pulse Ox
98.1 F 65 16 137/63 98
03/16/24 07:36 03/16/24 07:36 03/16/24 07:36 03/16/24 07:36 03/16/24 07:36
I&O
03/15/24 03/16/24 03/17/24
06:59 06:59 06:59
Intake Total 60 / 60 660 / 660
Output Total 600 / 600 1375 / 1375
Balance -540 / -540 -715 / -715
Data Reviewed
-
Total Time Spent with Patient (in minutes): 56
--- NOTE | 2024-03-16 12:42 | W.PN.GS2 ---
Today's Communication / Plan
-
trial of clears
Assessment / Plan
-
83 yo male with prior splenectomy presenting with partial sbo most likely from adhesions
AFVSS
Labs stable
NGT out on 03/15
--Trial of clears
--IVF as per primary team
No surgery planned at this time, will follow for continued improvement
Subjective Data
-
Date of Service: March 16, 2024
Patient seen and examined at bedside with Dr. Alas. Mohsenies n/v. Passing flatus. Ambulating. Mild tenderness to right side of abdomen
Objective Data
-
Intake and Output
03/15/24 03/16/24 03/17/24
06:59 06:59 06:59
Intake Total 60 / 60 660 / 660
Output Total 600 / 600 1375 / 1375
Balance -540 / -540 -715 / -715
Intake:
Oral fluids 600 / 600
Amount instilled into GI Tube ( 60 / 60 60 / 60
Total)
[place] Sump 60 / 60 60 / 60
Output:
Gastrointestinal tube output ( 125 / 125 200 / 200
Total)
[place] Sump 125 / 125 200 / 200
Urine, Voided 475 / 475 1175 / 1175
Other:
Number of approximated MODERATE 1 3
amounts of urine
Vital Signs
Temp Pulse Resp BP Pulse Ox
98.1 F 65 16 137/63 98
03/16/24 07:36 03/16/24 07:36 03/16/24 07:36 03/16/24 07:36 03/16/24 07:36
Lab Results
03/16/24 06:59
03/16/24 06:59
Calcium 9.3 mg/dl (8.4-10.2) 03/16/24 06:59
Total Bilirubin 0.6 mg/dl (0.2-1.3) 03/14/24 07:00
AST 20 U/L (17-59) 03/14/24 07:00
ALT 13 U/L (0-50) 03/14/24 07:00
Alkaline Phosphatase 81 U/L (38-126) 03/14/24 07:00
Total Protein 6.0 g/dl (6.3-8.2) L 03/14/24 07:00
Albumin 3.6 g/dl (3.5-5.0) 03/14/24 07:00
Physical Exam
-
NAD
Abd: soft and mild tenderness right abd, mild distention
[2024-03-16 15:45] VITALS: BP 149/72
[2024-03-16 17:25] LABS: Glucose - Point of Care 205 mg/dl (70-99)
[2024-03-16] MEDS: NOVOLOG FLEXPEN-LOW RESISTANCE 2 UNITS SC (17:50)
[2024-03-16 19:35] VITALS: BP 154/76
[2024-03-16 21:13] LABS: Glucose - Point of Care 249 mg/dl (70-99)
[2024-03-16 23:37] VITALS: BP 147/70
[2024-03-17] MEDS: SODIUM BICARBONATE 1150 MEQ IV (00:37)
[2024-03-17 07:30] VITALS: BP 138/69
[2024-03-17] MEDS: NSS (PRESERVATIVE FREE) 10 ML IV (08:27)
[2024-03-17] MEDS: PROTONIX IV 40 MG IV (08:28)
[2024-03-17] MEDS: HEPARIN 5000 UNITS SC ×2 (08:28→20:26)
[2024-03-17] MEDS: NOVOLOG FLEXPEN-LOW RESISTANCE SC ×2 (08:29→12:24)
[2024-03-17 08:30] LABS: Glucose - Point of Care 132 mg/dl (70-99)
[2024-03-17 09:05] LABS: Blood Urea Nitrogen 12 mg/dl (9-20); Calcium 9.2 mg/dl (8.4-10.2); Carbon Dioxide 28 mmol/L (22-30); Chloride 100 mmol/L (98-107); Estimated Creatinine Clearance 60 ml/min; Glucose 123 mg/dl (70-99); Potassium 3.8 mmol/L (3.5-5.1); Sodium 138 mmol/L (135-145); eGFR > 60.00
--- NOTE | 2024-03-17 10:42 | CM ---
Reviewed chart, patient post sx. Tolerating advancing diet. No skilled needs per OT/PT. Patient has been observed by nursing staff independently proving his own self care.
Plan: Case management will continue to follow and assist with discharge planning. Home when stable, will watch for VN needs.
--- NOTE | 2024-03-17 11:25 | W.PN.GS2 ---
Addendum entered and electronically signed by Az Georges MD 03/17/24 18:02:
I saw and examined the patient independently.
The Manufacturing Engineer's note was reviewed and I agree with the note, assessment and plan except where noted below.
Comment: This is an 83-year-old male with a history of a prior splenectomy as a child who presents with a partial small bowel obstruction likely from prior adhesions.
Has return of bowel function, but still distended will advance to a full liquid diet.
General surgery will continue to follow.
Original Note:
Today's Communication / Plan
-
FLD
Assessment / Plan
-
83 yo male with prior splenectomy presenting with partial sbo most likely from adhesions
AFVSS
Labs stable
NGT out on 03/15 tolerating CLD
Some persistent abdominal distention present
--Advance to FLD
--IVF as per primary team
No surgery planned at this time, will follow for continued improvement
Subjective Data
-
Date of Service: March 17, 2024
Patient seen and examined at bedside with Dr. Georges. Denies n/v. passing flatus and a BM this am. Would like to try more food today.
Objective Data
-
Intake and Output
03/16/24 03/17/24 03/18/24
06:59 06:59 06:59
Intake Total 660 / 660 1680 / 1680
Output Total 1375 / 1375 1700 / 1700
Balance -715 / -715 -20 / -20
Intake:
Oral fluids 600 / 600 840 / 840
IV fluids (Total) 840 / 840
Amount instilled into GI Tube ( 60 / 60
Total)
[place] Sump 60 / 60
Output:
Gastrointestinal tube output ( 200 / 200
Total)
[place] Sump 200 / 200
Urine, Voided 1175 / 1175 1700 / 1700
Other:
Number of approximated MODERATE 3 1
amounts of urine
Vital Signs
Temp Pulse Resp BP Pulse Ox
97.4 F 61 16 138/69 96
03/17/24 07:30 03/17/24 07:30 03/17/24 07:30 03/17/24 07:30 03/17/24 07:30
Lab Results
03/16/24 06:59
03/17/24 06:51
Calcium 9.2 mg/dl (8.4-10.2) 03/17/24 06:51
Total Bilirubin 0.6 mg/dl (0.2-1.3) 03/14/24 07:00
AST 20 U/L (17-59) 03/14/24 07:00
ALT 13 U/L (0-50) 03/14/24 07:00
Alkaline Phosphatase 81 U/L (38-126) 03/14/24 07:00
Total Protein 6.0 g/dl (6.3-8.2) L 03/14/24 07:00
Albumin 3.6 g/dl (3.5-5.0) 03/14/24 07:00
Physical Exam
-
NAD
Abd: soft, NT, mild distention
--- NOTE | 2024-03-17 11:40 | W.PN.HOSP.TC ---
Today's Communication/Plan
-
fulls
restart bp meds
dc IVF
Assessment / Plan
Assessment / Plan
# Small bowel obstruction/enteritis
# History of small bowel obstruction
-advanced to fulls.
-IV fluids DCed.
-po/iv pain control. anti-nausea meds prn.
-NG tube to be placed on admission and s/p removal on 03/15.
-AXR with on 03/15-Significantly decreased small bowel distention with a single dilated loop of small bowel projecting over the left upper quadrant, possibly representing resolving small bowel obstruction.
-General Surgery consulted
# Anion gap metabolic acidosis likely secondary to NG tube/NS IVF
-resolved. DC bicarb infusion
CAD status post stent
-Restart BB with hold parameters
Essential hypertension
-restart home regimen losatan/bb.
-As needed labetalol if needed
Don's esophagus
History of gastric ulcer
-Continue Protonix
Type 2 diabetes
-Hold Janumet, pioglitazone,
-restart dapagliflozin
-Insulin sliding scale
-a1c at 8.3. POC 132
History of trauma status post splenectomy
Former smoker
Full code
DVT prophylaxis�heparin
Discussed with patient spouse at bedside in detail.
Anticipated Discharge: 24 - 48 hours
Subjective/Interval History
-
Date of Service: March 17, 2024
feeling better
had bm earlier today
walking around
Objective Data
-
Labs:
Laboratory Results
03/17/24
06:51
Sodium 138
Potassium 3.8
Chloride 100
Carbon Dioxide 28
BUN 12
Creatinine 0.8
Glucose 123 H
Calcium 9.2
Vital Signs:
Vital Signs
Temp Pulse Resp BP Pulse Ox
97.4 F 61 16 138/69 96
03/17/24 07:30 03/17/24 07:30 03/17/24 07:30 03/17/24 07:30 03/17/24 07:30
I&O
03/16/24 03/17/24 03/18/24
06:59 06:59 06:59
Intake Total 660 / 660 1680 / 1680
Output Total 1375 / 1375 1700 / 1700
Balance -715 / -715 -20 / -20
Physical Exam
-
General: Well Developed and No Apparent Distress
HEENT: Normocephalic, Atraumatic and Moist Mucous Membranes
Respiratory: Clear to Auscultation
Cardiac: Regular Rhythm and S1/S2; Negative Murmur, Rub or Gallop
GI: Nontender, Distended and Other (NGT ); Negative Organomegaly
Rectal: Deferred by Provider
Musculoskeletal: No Clubbing, No Cyanosis and No Edema
Skin: Negative Rash
Neuro: Awake and Nonfocal/Grossly Intact
Psych: Calm
Data Reviewed
-
Total Time Spent with Patient (in minutes): 56
[2024-03-17 12:03] LABS: Glucose - Point of Care 140 mg/dl (70-99)
[2024-03-17 16:00] VITALS: BP 151/69
[2024-03-17 16:45] LABS: Glucose - Point of Care 426 mg/dl (70-99)
[2024-03-17 16:46] LABS: Glucose - Point of Care 417 mg/dl (70-99)
[2024-03-17 17:31] LABS: Glucose 367 mg/dl (70-99)
[2024-03-17] MEDS: NOVOLOG FLEXPEN-LOW RESISTANCE 5 UNITS SC (17:36)
[2024-03-17 19:11] LABS: Glucose - Point of Care 395 mg/dl (70-99)
[2024-03-17 20:05] VITALS: BP 147/64
[2024-03-17] MEDS: NOVOLOG FLEXPEN 7 UNITS SC (20:16)
[2024-03-17] MEDS: LOPRESSOR 25 MG PO (20:25)
[2024-03-17 22:00] LABS: Glucose - Point of Care 184 mg/dl (70-99)
[2024-03-17] MEDS: COZAAR 25 MG PO (23:07)
[2024-03-17 23:13] VITALS: BP 135/65
[2024-03-18 07:00] VITALS: BP 142/70
[2024-03-18 07:19] LABS: Blood Urea Nitrogen 11 mg/dl (9-20); Calcium 9.6 mg/dl (8.4-10.2); Carbon Dioxide 33 mmol/L (22-30); Chloride 99 mmol/L (98-107); Estimated Creatinine Clearance 60 ml/min; Glucose 140 mg/dl (70-99); Potassium 3.8 mmol/L (3.5-5.1); Sodium 138 mmol/L (135-145); eGFR > 60.00
[2024-03-18 07:55] LABS: Glucose - Point of Care 162 mg/dl (70-99)
[2024-03-18] MEDS: NOVOLOG FLEXPEN-LOW RESISTANCE 1 UNITS SC (08:59)
[2024-03-18] MEDS: NSS (PRESERVATIVE FREE) 10 ML IV (08:59)
[2024-03-18] MEDS: PROTONIX IV 40 MG IV (09:00)
[2024-03-18] MEDS: LOPRESSOR 25 MG PO (09:00)
[2024-03-18] MEDS: FARXIGA 10 MG PO (09:00)
[2024-03-18] MEDS: HEPARIN 5000 UNITS SC (09:00)
--- NOTE | 2024-03-18 09:38 | W.PN.GS2 ---
Addendum entered and electronically signed by Kai Corona MD 03/18/24 09:57:
Patient seen and examined.
No complaints. Denies abdominal pain. No nausea or vomiting. Passing flatus and loose stools.
Gen: NAD
Abd: soft, NT/ND, non-peritoneal
Patient is a 83 yo M p/w SBO secondary to adhesions.
AVSS
Labs stable
Clinical and radiographic improvement with ROBF
-- LRD
-- Tentative plan for DC today versus tomorrow depending onn diet tolerance
Original Note:
Today's Communication / Plan
-
-cleared to be d/c from surgical standpoint if able to tolerate LRD
Assessment / Plan
-
83-year-old male with a history of a prior splenectomy as a child who presents with a partial small bowel obstruction likely from prior adhesions.
AFVSS
Labs stable
ROBF
-Advance diet to LRD
-Remaining care as per primary team
-cleared to be d/c from surgical standpoint if able to tolerate LRD
Significant clinical improvement.
Time Spent
Total Time Spent with Patient (in minutes): 15
Subjective Data
-
Date of Service: March 18, 2024
Patient seen and examined at bedside with Dr. Corona. Denies n/v. passing flatus and a BM yesterday. Would like to try more food today.
Objective Data
-
Intake and Output
03/17/24 03/18/24 03/19/24
06:59 06:59 06:59
Intake Total 1680 / 1680 2079
Output Total 1700 / 1700
Balance -20 / -20 2079
Intake:
Oral fluids 840 / 840 1380 / 1380
IV fluids (Total) 840 / 840 700 / 700
Output:
Urine, Voided 1700 / 1700
Other:
Number of approximated MODERATE 1 3
amounts of urine
Vital Signs
Temp Pulse Resp BP Pulse Ox
97.6 F 62 14 142/70 96
03/18/24 07:00 03/18/24 07:00 03/18/24 07:00 03/18/24 07:00 03/18/24 07:00
Lab Results
03/16/24 06:59
03/18/24 06:22
Calcium 9.6 mg/dl (8.4-10.2) 03/18/24 06:22
Total Bilirubin 0.6 mg/dl (0.2-1.3) 03/14/24 07:00
AST 20 U/L (17-59) 03/14/24 07:00
ALT 13 U/L (0-50) 03/14/24 07:00
Alkaline Phosphatase 81 U/L (38-126) 03/14/24 07:00
Total Protein 6.0 g/dl (6.3-8.2) L 03/14/24 07:00
Albumin 3.6 g/dl (3.5-5.0) 03/14/24 07:00
Physical Exam
-
General : NAD
Abd: soft, NT, minimal distention
[2024-03-18 11:34] LABS: Glucose - Point of Care 380 mg/dl (70-99)
--- NOTE | 2024-03-18 11:38 | W.PN.HOSP.TC ---
Addendum entered and electronically signed by Deni Healy MD 03/18/24 16:35:
Patient tolerated low residual diet. Passing flatulence. Bowel movement earlier today. Per Dr. Corona patient to be discharged home.
More than 30 minutes spent in discharge including
Final examination of the patient
Summarizing hospital stay
Instructions for continuing care to all relevant caregivers
Preparation of discharge records, prescriptions, and referral forms
Total time spent (in minutes): 53
Original Note:
Today's Communication/Plan
-
Monitor for diet tolerance
Restart p.o. diabetic meds
Surgery recs
Assessment / Plan
Assessment / Plan
# Small bowel obstruction/enteritis
# History of small bowel obstruction
-advanced to low residue diet. Monitor for tolerance.
-IV fluids DCed.
-po/iv pain control. anti-nausea meds prn.
-NG tube to be placed on admission and s/p removal on 03/15.
-AXR with on 03/15-Significantly decreased small bowel distention with a single dilated loop of small bowel projecting over the left upper quadrant, possibly representing resolving small bowel obstruction.
-General Surgery consulted
# Anion gap metabolic acidosis likely secondary to NG tube/NS IVF
-resolved. DC bicarb infusion
CAD status post stent
-Restart BB with hold parameters
Essential hypertension
-restart home regimen losatan/bb.
-As needed labetalol if needed
Don's esophagus
History of gastric ulcer
-Continue Protonix
Type 2 diabetes
-RESTART Janumet, pioglitazone,
-restart dapagliflozin
-Insulin sliding scale
-a1c at 8.3. POC 380
History of trauma status post splenectomy
Former smoker
Full code
DVT prophylaxis�heparin
Anticipated Discharge: Within 24 hours
Subjective/Interval History
-
Date of Service: March 18, 2024
Denies abdominal pain
Tolerating liquids
Objective Data
-
Labs:
Laboratory Results
03/18/24
06:22
Sodium 138
Potassium 3.8
Chloride 99
Carbon Dioxide 33 H
BUN 11
Creatinine 0.8
Glucose 140 H
Calcium 9.6
Vital Signs:
Vital Signs
Temp Pulse Resp BP Pulse Ox
97.6 F 62 14 142/70 96
03/18/24 07:00 03/18/24 07:00 03/18/24 07:00 03/18/24 07:00 03/18/24 07:00
I&O
03/17/24 03/18/24 03/19/24
06:59 06:59 06:59
Intake Total 1680 / 1680 2079
Output Total 1700 / 1700
Balance -2079
Physical Exam
-
General: Well Developed and No Apparent Distress
HEENT: Normocephalic, Atraumatic and Moist Mucous Membranes
Respiratory: Clear to Auscultation
Cardiac: Regular Rhythm and S1/S2; Negative Murmur, Rub or Gallop
GI: Soft, Nontender, Nondistended and Normal Bowel Sounds; Negative Organomegaly
Rectal: Deferred by Provider
Musculoskeletal: No Clubbing, No Cyanosis and No Edema
Skin: Negative Rash
Neuro: Awake and Nonfocal/Grossly Intact
Psych: Calm
[2024-03-18] MEDS: NOVOLOG FLEXPEN-LOW RESISTANCE 5 UNITS SC (12:23)
[2024-03-18 15:00] VITALS: BP 139/70
[2024-03-18] MEDS: GLUCOPHAGE 1000 MG PO (16:22)
[2024-03-18 16:31] LABS: Glucose - Point of Care 227 mg/dl (70-99)
--- NOTE | 2024-03-18 16:34 | W.DCSUMMARY ---
Discharge Summary
Discharge Data
Date of Admission: 03/13/24
Date of Discharge: 03/18/24
-
Pending Results: No
Hospital Course
83-year-old male past medical history of hypertension diabetes mellitus who is presenting from home with abdominal pain. Patient underwent CT abdomen pelvis on admission which showed small bowel obstruction. NGT was placed with significant biliary
output. Subsequently abdominal x-ray with persistent small bowel obstruction. NG tube output decreasing NG tube was clamped and removed. Repeat abdominal x-ray with improvement in bowel obstruction. Patient was started on clear liquid diet.
Patient was tolerating clear liquid diet which was eventually advanced to full liquid. Patient was passing flatulence. Patient had bowel movement. Diet was advanced to low residue. Patient had bowel movement on day of discharge. Patient passing
flatulence. Patient without any nausea and vomiting after tolerating low residue diet and per surgery patient given discharged home.
Discharge Plan
-
Patient Disposition: Home (Routine Discharge)
Discharge Diagnosis/Procedures: Small bowel obstruction/enteritis
Anion gap metabolic acidosis
Condition: Fair
Activity: No restrictions
Driving Restrictions: As prior to admission
Referrals:
Reagan Peter MD [Family Provider] -
Prescriptions:
Continued
ascorbic acid (vitamin C) [Vitamin C] 1,000 MG tablet
1 tab PO HS
calcium carbonate [Calcium 600] 600 MG tablet
600 mg PO BID
losartan 25 MG tablet
25 mg PO HS
metoprolol tartrate 25 MG tablet
25 mg PO BID
pantoprazole 40 mg Tablet,Delayed Release (Dr/Ec)
40 mg PO DAILY
magnesium 200 mg Tablet
400 mg PO DAILY
brmrdildjinc-hbkwdzor-gidthj Tablet
1 tab PO DAILY
dapagliflozin propanediol [Farxiga] 10 mg Tablet
10 mg PO DAILY
pioglitazone 45 mg Tablet
45 mg PO HS
tamsulosin 0.4 mg Capsule
0.4 mg PO DAILY
Patient Comments:
03/13/24: Family was unsure of this med. Last filled in pharmacy 12/28/23 for 90 tablets.
Janumet 50-1,000 mg tablet
1 tab PO BID
omega 1-ozx-zte-fish oil [Fish Oil] 1,000 mg (120 mg-180 mg) Capsule
1 cap PO DAILY
Discharge Orders:
Discharge Patient (As Directed); Ordered 03/18/24
Ordered By: Deni Healy
Discharge Date and Time
Print Language: ARMENIAN
--- NOTE | 2024-03-18 16:41 | PTCARENOTE ---
Patient tolerating low res diet, endorsed passing gas, endorsed bowel movement earlier this am, VSS, awaiting possible d/c home
[2024-03-18] MEDS: JANUVIA 50 MG PO (17:19)
[2024-03-18] MEDS: NOVOLOG FLEXPEN-LOW RESISTANCE 2 UNITS SC (17:20)
== END 2024-03-18 18:23 | disposition home or self-care (01) | DRG 389 ==
LOC: 3 WEST ACU 19:36
PROVIDERS: Physician Assistant; Registered Nurse; ADMITTING PHYSICIAN Hospitalist; ATTENDING PHYSICIAN Hospitalist; CONSULT PHYSICIAN Surgery; EMERGENCY PHYSICIAN Emergency Medicine; FAMILY PHYSICIAN Internal Medicine
PROC: 0D9670Z Drainage of Stomach with Drainage Device, Via Natural or Artificial Opening (ICD-10-PCS; 2024-03-13)
PROC: 0DP07UZ Removal of Feeding Device from Upper Intestinal Tract, Via Natural or Artificial Opening (ICD-10-PCS; 2024-03-15)
DX: K56.51 Intestinal adhesions [bands], with partial obstruction (principal); E87.20 Acidosis, unspecified; I10 Essential (primary) hypertension; E11.9 Type 2 diabetes mellitus without complications; I25.10 Atherosclerotic heart disease of native coronary artery without angina pectoris; K22.70 Barrett's esophagus without dysplasia; Z87.11 Personal history of peptic ulcer disease; Z87.891 Personal history of nicotine dependence
CPT/HCPCS: 43752; 74018; 74019; 74177; 80048; 80053; 82947; 82962; 83036; 83690; 85025; 85027; 93005; 96361; 96374; 96375; 99285; Q9967

== ENCOUNTER → 2024-04-29 06:32 | Day surgery (SDC) | payer OTHER, SELFPAY ==
[2024-04-29 09:00] LABS: Glucose - Point of Care 162 mg/dl (70-99)
== END ==
LOC: GI 06:32
PROVIDERS: ATTENDING PHYSICIAN Specialist
DX: K22.70 Barrett's esophagus without dysplasia (principal); K31.89 Other diseases of stomach and duodenum; K31.A0 Gastric intestinal metaplasia, unspecified; Z87.19 Personal history of other diseases of the digestive system; Z98.890 Other specified postprocedural states
CPT/HCPCS: 43239; 88305; 82962; 88342

== ENCOUNTER 2024-08-14 06:20 | Day surgery (SDC) | payer OTHER, SELFPAY ==
[2024-08-14 08:27] LABS: Glucose - Point of Care 188 mg/dl (70-99)
== END 2024-08-14 09:41 | disposition home or self-care (01) ==
LOC: GI 06:20
PROVIDERS: ATTENDING PHYSICIAN Specialist
DX: K31.89 Other diseases of stomach and duodenum (principal); K22.70 Barrett's esophagus without dysplasia; K31.A0 Gastric intestinal metaplasia, unspecified
CPT/HCPCS: 43239; 88305; 82962; 88342

== ENCOUNTER → 2025-05-15 13:09 | Outpatient (REF) | payer OTHER, SELFPAY | LOC: HWRAD 13:09 | PROVIDERS: ATTENDING PHYSICIAN Internal Medicine | DX: R05.8 Other specified cough (principal); M25.511 Pain in right shoulder; M54.31 Sciatica, right side | CPT/HCPCS: 71046; 72100; 73030 ==